=== PATIENT | male | born 1940 | race Caucasian/White ===

== ENCOUNTER 2020-12-20 23:06 | Inpatient (IN) | payer OTHER, MEDICAID, SELFPAY ==
[~2020-12-20] VITALS: Ht 162.6 cm; Wt 83.0 kg
[2020-12-20 23:24] VITALS: BP_SYST 146
[2020-12-20] MEDS: NACL 0.9% 1,000 ML IV SCH (23:30)
[2020-12-21 00:13] LABS: BASOPHILS # (AUTO) 0.1 K/uL (0.0-0.2); BASOPHILS % (AUTO) 0.5 % (0.0-2.0); EOSINOPHILS # (AUTO) 0.6 K/uL (0.0-0.4); EOSINOPHILS % (AUTO) 5.5 % (0.0-4.0); HEMATOCRIT 35.4 % (36-54); LYMPHOCYTES # (AUTO) 1.7 K/uL (1.0-5.5); LYMPHOCYTES % (AUTO) 16.1 % (20.5-51.5); MEAN CORPUSCULAR HEMOGLOBIN 29 pg (27-31); MEAN CORPUSCULAR HGB CONC 34 % (32-36); MEAN CORPUSCULAR VOLUME 87 fL (79.0-98.0); MONOCYTES # (AUTO) 0.5 K/uL (0.0-1.0); MONOCYTES % (AUTO) 4.9 % (1.7-9.3); NEUTROPHILS # (AUTO) 7.6 K/uL (1.8-7.7); PLATELET COUNT (AUTO) 167 K/uL (130-430); RED BLOOD CELL COUNT(AUTO) 4.06 MIL/uL (4.2-6.2); WHITE BLOOD COUNT (AUTO) 10.4 K/uL (4.8-10.8)
[2020-12-21 00:44] LABS: ANION GAP 10 (5-15); CALCIUM 9.1 mg/dL (8.4-11.0); CHLORIDE 105 mmol/L (98-107); CREATININE 1.02 mg/dL (0.55-1.30); GLUCOSE 238 mg/dL (70-99); POTASSIUM 3.9 mmol/L (3.5-5.1); SODIUM SERUM 140 mmol/L (136-145); UREA NITROGEN, BLOOD 25 mg/dL (8-21)
[2020-12-21 00:51] LABS: ALANINE AMINOTRANSFERASE 25 U/L (12-78); ALBUMIN 3.1 g/dL (3.4-4.8); ASPARTATE AMINOTRANSFERASE 21 U/L (10-37); TOTAL BILIRUBIN 0.3 mg/dL (0.0-1.0)
[2020-12-21] MEDS ORDERED: CRAN1CAP6 PO (00:56)
[2020-12-21] MEDS ORDERED: OMEP20CA15 PO (00:56)
[2020-12-21] MEDS ORDERED: CHOL400C8 PO (00:56)
[2020-12-21] MEDS ORDERED: TIMO5DRO15 EACH EYE (00:56)
[2020-12-21] MEDS ORDERED: DOCU-144 PO (00:56)
[2020-12-21] MEDS ORDERED: BISA-79 RC (00:56)
[2020-12-21] MEDS ORDERED: LORA-259 PO (00:56)
[2020-12-21] MEDS ORDERED: METF-518 PO (00:56)
[2020-12-21] MEDS ORDERED: DORZ10DR9 EACH EYE (00:56)
[2020-12-21] MEDS ORDERED: ACET-2634 PO (00:56)
[2020-12-21] MEDS ORDERED: LINA5TAB2 PO (00:56)
[2020-12-21] MEDS ORDERED: XALEYE OP (00:56)
[2020-12-21] MEDS ORDERED: TAMS-11 PO (00:56)
[2020-12-21] MEDS ORDERED: BRI.2% EACH EYE ×2 (00:56)
[2020-12-21] MEDS ORDERED: TRAM50TA2 PO (00:56)
[2020-12-21] MEDS ORDERED: ACET325T PO (00:56)
[2020-12-21] MEDS ORDERED: NEU400 PO (00:56)
[2020-12-21] MEDS ORDERED: LACT1CAP7 PO (00:56)
[2020-12-21] MEDS ORDERED: MOM PO (00:56)
[2020-12-21 03:53] VITALS: BP_SYST 153
[2020-12-21 04:34] LABS: ACETAMINOPHEN < 1 ug/mL (1-30); ALCOHOL, BLOOD < 3 mg/dL (<10)
[2020-12-21 06:58] LABS: BASOPHILS # (AUTO) 0.1 K/uL (0.0-0.2); BASOPHILS % (AUTO) 0.7 % (0.0-2.0); EOSINOPHILS # (AUTO) 0.3 K/uL (0.0-0.4); EOSINOPHILS % (AUTO) 3.5 % (0.0-4.0); HEMATOCRIT 37.6 % (36-54); HEMOGLOBIN 12.7 g/dL (14.0-18.0); LYMPHOCYTES # (AUTO) 1.6 K/uL (1.0-5.5); LYMPHOCYTES % (AUTO) 16.8 % (20.5-51.5); MEAN CORPUSCULAR HEMOGLOBIN 29 pg (27-31); MEAN CORPUSCULAR HGB CONC 34 % (32-36); MEAN CORPUSCULAR VOLUME 87 fL (79.0-98.0); MONOCYTES # (AUTO) 0.5 K/uL (0.0-1.0); NEUTROPHILS # (AUTO) 6.9 K/uL (1.8-7.7); PLATELET COUNT (AUTO) 160 K/uL (130-430); RED BLOOD CELL COUNT(AUTO) 4.31 MIL/uL (4.2-6.2); RED CELL DISTRIBUTION WIDTH 13.9 % (9.0-15.0); WHITE BLOOD COUNT (AUTO) 9.3 K/uL (4.8-10.8)
[2020-12-21 08:00] VITALS: BP_SYST 153
[2020-12-21 08:28] LABS: ALANINE AMINOTRANSFERASE 25 U/L (12-78); ALBUMIN 3.1 g/dL (3.4-4.8); ANION GAP 7 (5-15); ASPARTATE AMINOTRANSFERASE 18 U/L (10-37); CHLORIDE 106 mmol/L (98-107); CREATININE 0.89 mg/dL (0.55-1.30); GLUCOSE 200 mg/dL (70-99); POTASSIUM 3.8 mmol/L (3.5-5.1); SODIUM SERUM 140 mmol/L (136-145); TOTAL BILIRUBIN 0.3 mg/dL (0.0-1.0); UREA NITROGEN, BLOOD 22 mg/dL (8-21)
[2020-12-21 09:19] LABS: CHOLESTEROL 99 mg/dL (<200); HDL CHOLESTEROL 41 mg/dL (>45); LDL CHOLESTEROL 45 mg/dL (<100); TRIGLYCERIDES 114 mg/dL (30-150)
[2020-12-21 16:00] VITALS: BP_SYST 134
[2020-12-21 19:00] VITALS: BP_SYST 112
[2020-12-21 20:00] VITALS: BP_SYST 112
[2020-12-21] MEDS ORDERED: BRIMONIDINE TARTRATE 0.2% 5 mL EYE DROPS EACH EYE SCH (21:00)
[2020-12-21] MEDS: BRIMONIDINE TARTRATE 0.2% 5 mL EYE DROPS EACH EYE SCH (21:01)
[2020-12-21] MEDS: NACL 0.9% 1,000 ML IV SCH (21:01)
[2020-12-21] MEDS: DORZOLAMIDE 2% OPHTHALMIC SOLN 5ML OP SCH (21:01)
[2020-12-21] MEDS: GABAPENTIN 400 MG CAPSULE PO SCH (21:02)
[2020-12-21] MEDS: LATANOPROST 2.5 ML DROPS (XALATAN) OP SCH (21:02)
[2020-12-21] MEDS: TAMSULOSIN HCL 0.4 MG CAP PO SCH (21:02)
[2020-12-21] MEDS: traMADol HCL HCL 50 MG TABLET (ULTRAM) PO SCH (21:03)
[2020-12-22 00:11] VITALS: BP_SYST 178
[2020-12-22 06:47] LABS: BASOPHILS # (AUTO) 0.1 K/uL (0.0-0.2); BASOPHILS % (AUTO) 0.7 % (0.0-2.0); EOSINOPHILS # (AUTO) 0.1 K/uL (0.0-0.4); EOSINOPHILS % (AUTO) 1.2 % (0.0-4.0); HEMATOCRIT 38.5 % (36-54); HEMOGLOBIN 12.9 g/dL (14.0-18.0); LYMPHOCYTES # (AUTO) 2.2 K/uL (1.0-5.5); LYMPHOCYTES % (AUTO) 20.2 % (20.5-51.5); MEAN CORPUSCULAR HEMOGLOBIN 30 pg (27-31); MEAN CORPUSCULAR HGB CONC 34 % (32-36); MEAN CORPUSCULAR VOLUME 88 fL (79.0-98.0); MONOCYTES # (AUTO) 0.5 K/uL (0.0-1.0); MONOCYTES % (AUTO) 4.6 % (1.7-9.3); NEUTROPHILS # (AUTO) 7.8 K/uL (1.8-7.7); NEUTROPHILS % (AUTO) 73.3 % (40.0-70.0); PLATELET COUNT (AUTO) 191 K/uL (130-430); RED BLOOD CELL COUNT(AUTO) 4.38 MIL/uL (4.2-6.2); RED CELL DISTRIBUTION WIDTH 13.9 % (9.0-15.0); WHITE BLOOD COUNT (AUTO) 10.6 K/uL (4.8-10.8)
[2020-12-22 06:49] LABS: ANION GAP 9 (5-15); CALCIUM 8.8 mg/dL (8.4-11.0); CHLORIDE 103 mmol/L (98-107); CREATININE 1.11 mg/dL (0.55-1.30); GLUCOSE 210 mg/dL (70-99); POTASSIUM 3.5 mmol/L (3.5-5.1); SODIUM SERUM 137 mmol/L (136-145); UREA NITROGEN, BLOOD 20 mg/dL (8-21)
[2020-12-22 08:00] VITALS: BP_SYST 142
[2020-12-22] MEDS ORDERED: OMEPRAZOLE Non-Formulary 20 MG CAPSULE.DR PO SCH (09:00)
[2020-12-22] MEDS: CHOLECALCIFEROL (VITAMIN D-3) 400 UNIT TABLET PO SCH (09:00)
[2020-12-22] MEDS: DOCUSATE SODIUM 100 MG CAPSULE PO SCH (09:00)
[2020-12-22] MEDS: PANTOPRAZOLE SODIUM 40 MG TAB PO SCH (09:00)
[2020-12-22] MEDS: LACTOBACILLUS RHAMNOSUS GG 1 CAP CAPSULE PO SCH (09:00)
[2020-12-22] MEDS ORDERED: [UNRECOGNIZED DRUG - OTHER] PO SCH (09:00)
[2020-12-22] MEDS: DORZOLAMIDE 2% OPHTHALMIC SOLN 5ML OP SCH ×3 (09:00→23:20)
[2020-12-22] MEDS: BRIMONIDINE TARTRATE 0.2% 5 mL EYE DROPS EACH EYE SCH ×3 (09:00→23:19)
[2020-12-22] MEDS: traMADol HCL HCL 50 MG TABLET (ULTRAM) PO SCH ×3 (09:00→15:05)
[2020-12-22] MEDS: GABAPENTIN 400 MG CAPSULE PO SCH ×3 (09:00→23:21)
[2020-12-22 11:29] VITALS: BP_SYST 122
[2020-12-22] MEDS: NACL 0.9% 1,000 ML IV SCH (14:53)
[2020-12-22 16:01] VITALS: BP_SYST 120
[2020-12-22 20:00] VITALS: BP_SYST 120
[2020-12-22] MEDS: LATANOPROST 2.5 ML DROPS (XALATAN) OP SCH (23:20)
[2020-12-22] MEDS: TAMSULOSIN HCL 0.4 MG CAP PO SCH (23:21)
[2020-12-23 00:20] VITALS: BP_SYST 154
[2020-12-23] MEDS: DORZOLAMIDE 2% OPHTHALMIC SOLN 5ML OP SCH ×4 (09:00→22:00)
[2020-12-23] MEDS: LACTOBACILLUS RHAMNOSUS GG 1 CAP CAPSULE PO SCH ×2 (09:00→09:15)
[2020-12-23] MEDS: CHOLECALCIFEROL (VITAMIN D-3) 400 UNIT TABLET PO SCH ×2 (09:00→09:14)
[2020-12-23] MEDS: BRIMONIDINE TARTRATE 0.2% 5 mL EYE DROPS EACH EYE SCH ×4 (09:00→22:00)
[2020-12-23] MEDS: DOCUSATE SODIUM 100 MG CAPSULE PO SCH ×2 (09:00→09:15)
[2020-12-23] MEDS: traMADol HCL HCL 50 MG TABLET (ULTRAM) PO SCH ×4 (09:00→22:00)
[2020-12-23] MEDS: GABAPENTIN 400 MG CAPSULE PO SCH ×4 (09:00→22:00)
[2020-12-23] MEDS: PANTOPRAZOLE SODIUM 40 MG TAB PO SCH ×2 (09:00→09:15)
[2020-12-23 09:06] VITALS: BP_SYST 131
[2020-12-23] MEDS: NACL 0.9% 1,000 ML IV SCH (11:45)
[2020-12-23 12:42] VITALS: BP_SYST 145
[2020-12-23 16:22] VITALS: BP_SYST 133
[2020-12-23] MEDS ORDERED: DEXTROSE 50% JECT 50 ML DISP.SYRIN IVP PRN (18:45)
[2020-12-23] MEDS ORDERED: GLUCOSE (DEXTROSE) ORAL GEL -Adults PO PRN (18:45)
[2020-12-23 20:00] VITALS: BP_SYST 157
[2020-12-23] MEDS: TAMSULOSIN HCL 0.4 MG CAP PO SCH (22:00)
[2020-12-23] MEDS: LATANOPROST 2.5 ML DROPS (XALATAN) OP SCH (22:01)
[2020-12-24] MEDS: INSULIN REGULAR, HUMAN 100 UNITS/ML, 10 ML VIAL (humuLIN R) SUBCUT PRN ×4 (00:02→18:45)
[2020-12-24 01:24] VITALS: BP_SYST 145
[2020-12-24] MEDS: NACL 0.9% 1,000 ML IV SCH (07:30)
[2020-12-24] MEDS: PANTOPRAZOLE SODIUM 40 MG TAB PO SCH (09:00)
[2020-12-24] MEDS: DORZOLAMIDE 2% OPHTHALMIC SOLN 5ML OP SCH ×3 (09:00→22:02)
[2020-12-24] MEDS: CHOLECALCIFEROL (VITAMIN D-3) 400 UNIT TABLET PO SCH (09:00)
[2020-12-24] MEDS: DOCUSATE SODIUM 100 MG CAPSULE PO SCH (09:00)
[2020-12-24] MEDS: LACTOBACILLUS RHAMNOSUS GG 1 CAP CAPSULE PO SCH (09:00)
[2020-12-24] MEDS: GABAPENTIN 400 MG CAPSULE PO SCH ×3 (09:00→22:02)
[2020-12-24] MEDS: traMADol HCL HCL 50 MG TABLET (ULTRAM) PO SCH ×3 (09:00→22:03)
[2020-12-24] MEDS: BRIMONIDINE TARTRATE 0.2% 5 mL EYE DROPS EACH EYE SCH ×3 (09:00→22:02)
[2020-12-24 15:22] VITALS: BP_SYST 121
[2020-12-24 19:00] VITALS: BP_SYST 122
[2020-12-24 20:00] VITALS: BP_SYST 122
[2020-12-24] MEDS: TAMSULOSIN HCL 0.4 MG CAP PO SCH (22:02)
[2020-12-24] MEDS: LATANOPROST 2.5 ML DROPS (XALATAN) OP SCH (22:02)
[2020-12-25 00:32] VITALS: BP_SYST 138
[2020-12-25] MEDS: NACL 0.9% 1,000 ML IV SCH ×2 (03:30→21:06)
[2020-12-25] MEDS: INSULIN REGULAR, HUMAN 100 UNITS/ML, 10 ML VIAL (humuLIN R) SUBCUT PRN ×3 (06:17→23:19)
[2020-12-25 07:54] LABS: BASOPHILS # (AUTO) 0.1 K/uL (0.0-0.2); BASOPHILS % (AUTO) 0.7 % (0.0-2.0); EOSINOPHILS % (AUTO) 9.2 % (0.0-4.0); HEMATOCRIT 36.5 % (36-54); HEMOGLOBIN 12.5 g/dL (14.0-18.0); LYMPHOCYTES # (AUTO) 2.2 K/uL (1.0-5.5); LYMPHOCYTES % (AUTO) 21.1 % (20.5-51.5); MEAN CORPUSCULAR HEMOGLOBIN 29 pg (27-31); MEAN CORPUSCULAR HGB CONC 34 % (32-36); MEAN CORPUSCULAR VOLUME 85 fL (79.0-98.0); MONOCYTES # (AUTO) 0.6 K/uL (0.0-1.0); MONOCYTES % (AUTO) 5.3 % (1.7-9.3); NEUTROPHILS # (AUTO) 6.6 K/uL (1.8-7.7); NEUTROPHILS % (AUTO) 63.7 % (40.0-70.0); PLATELET COUNT (AUTO) 166 K/uL (130-430); RED BLOOD CELL COUNT(AUTO) 4.28 MIL/uL (4.2-6.2); RED CELL DISTRIBUTION WIDTH 14.1 % (9.0-15.0); WHITE BLOOD COUNT (AUTO) 10.4 K/uL (4.8-10.8)
[2020-12-25 07:56] LABS: ANION GAP 11 (5-15); CALCIUM 9.1 mg/dL (8.4-11.0); CHLORIDE 106 mmol/L (98-107); CREATININE 1.16 mg/dL (0.55-1.30); GLUCOSE 221 mg/dL (70-99); POTASSIUM 3.5 mmol/L (3.5-5.1); SODIUM SERUM 142 mmol/L (136-145); UREA NITROGEN, BLOOD 22 mg/dL (8-21)
[2020-12-25 08:02] VITALS: BP_SYST 141
[2020-12-25] MEDS: LACTOBACILLUS RHAMNOSUS GG 1 CAP CAPSULE PO SCH (09:13)
[2020-12-25] MEDS: CHOLECALCIFEROL (VITAMIN D-3) 400 UNIT TABLET PO SCH (09:13)
[2020-12-25] MEDS: traMADol HCL HCL 50 MG TABLET (ULTRAM) PO SCH ×3 (09:14→21:06)
[2020-12-25] MEDS: DOCUSATE SODIUM 100 MG CAPSULE PO SCH (09:14)
[2020-12-25] MEDS: PANTOPRAZOLE SODIUM 40 MG TAB PO SCH (09:14)
[2020-12-25] MEDS: GABAPENTIN 400 MG CAPSULE PO SCH ×3 (09:14→21:06)
[2020-12-25] MEDS: DORZOLAMIDE 2% OPHTHALMIC SOLN 5ML OP SCH ×3 (09:24→21:05)
[2020-12-25] MEDS: BRIMONIDINE TARTRATE 0.2% 5 mL EYE DROPS EACH EYE SCH ×3 (09:24→21:05)
[2020-12-25 13:21] VITALS: BP_SYST 143
[2020-12-25 17:53] VITALS: BP_SYST 119
[2020-12-25 20:00] VITALS: BP_SYST 155
[2020-12-25] MEDS: LATANOPROST 2.5 ML DROPS (XALATAN) OP SCH (21:05)
[2020-12-25] MEDS: TAMSULOSIN HCL 0.4 MG CAP PO SCH (21:05)
[2020-12-26] VITALS (7 sets, daily range): BP systolic 119–152
[2020-12-26] MEDS: INSULIN REGULAR, HUMAN 100 UNITS/ML, 10 ML VIAL (humuLIN R) SUBCUT PRN ×2 (05:24→11:31)
[2020-12-26] MEDS: GABAPENTIN 400 MG CAPSULE PO SCH ×3 (08:58→20:23)
[2020-12-26] MEDS: DORZOLAMIDE 2% OPHTHALMIC SOLN 5ML OP SCH ×3 (08:58→20:22)
[2020-12-26] MEDS: BRIMONIDINE TARTRATE 0.2% 5 mL EYE DROPS EACH EYE SCH ×3 (08:58→20:22)
[2020-12-26] MEDS: LACTOBACILLUS RHAMNOSUS GG 1 CAP CAPSULE PO SCH (08:59)
[2020-12-26] MEDS: CHOLECALCIFEROL (VITAMIN D-3) 400 UNIT TABLET PO SCH (08:59)
[2020-12-26] MEDS: DOCUSATE SODIUM 100 MG CAPSULE PO SCH (08:59)
[2020-12-26] MEDS: PANTOPRAZOLE SODIUM 40 MG TAB PO SCH (08:59)
[2020-12-26] MEDS: traMADol HCL HCL 50 MG TABLET (ULTRAM) PO SCH ×3 (08:59→20:24)
[2020-12-26] MEDS: NACL 0.9% 1,000 ML IV SCH (19:30)
[2020-12-26] MEDS: LATANOPROST 2.5 ML DROPS (XALATAN) OP SCH (20:22)
[2020-12-26] MEDS: TAMSULOSIN HCL 0.4 MG CAP PO SCH (20:23)
[2020-12-27] VITALS: BP_SYST 140
[2020-12-27 00:20] VITALS: BP_SYST 126
[2020-12-27 08:00] VITALS: BP_SYST 135
== END 2020-12-27 11:40 | DRG 637 ==
LOC: SED 23:06 → SMU 23:20
PROVIDERS: ADMIT Internal Medicine; ATTEND Internal Medicine
DX: E11.622 Type 2 diabetes mellitus with other skin ulcer (principal); G93.41 Metabolic encephalopathy; F03.91 Unspecified dementia, unspecified severity, with behavioral disturbance; L97.129 Non-pressure chronic ulcer of left thigh with unspecified severity; L97.229 Non-pressure chronic ulcer of left calf with unspecified severity; L97.219 Non-pressure chronic ulcer of right calf with unspecified severity; L97.119 Non-pressure chronic ulcer of right thigh with unspecified severity; S21.109A Unspecified open wound of unspecified front wall of thorax without penetration into thoracic cavity, initial encounter; I10 Essential (primary) hypertension; H40.9 Unspecified glaucoma; N40.1 Benign prostatic hyperplasia with lower urinary tract symptoms; Z20.822 Contact with and (suspected) exposure to COVID-19; R33.8 Other retention of urine; R45.1 Restlessness and agitation; K21.9 Gastro-esophageal reflux disease without esophagitis; M19.90 Unspecified osteoarthritis, unspecified site; D64.9 Anemia, unspecified; S31.000A Unspecified open wound of lower back and pelvis without penetration into retroperitoneum, initial encounter; S31.829A Unspecified open wound of left buttock, initial encounter; S31.819A Unspecified open wound of right buttock, initial encounter; X58.XXXA Exposure to other specified factors, initial encounter; Y93.89 Activity, other specified; Y92.89 Other specified places as the place of occurrence of the external cause; Y99.8 Other external cause status; Z79.899 Other long term (current) drug therapy; Z87.440 Personal history of urinary (tract) infections
CPT/HCPCS: 36415; 70450-TC; 76376; 80048; 80053; 80061; 82962; 83036; 83605; 84484; 85025; 87040-TC; 87081; 93005; 95816; 99285; G0480; G0481; G0482; J1815